=== PATIENT | female | born 1985 | race Caucasian/White ===

== ENCOUNTER 2018-11-05 05:25 | Inpatient (IN) | payer OTHER ==
[2018-11-05] MEDS ORDERED: BUTORPHANOL TARTRATE 1 MG/ML VIAL IVPB ONE (06:00)
[2018-11-05] MEDS ORDERED: ELECTROLYTE-148 SOLN 1,000 ML IV SCH (06:00)
--- NOTE | 2018-11-05 06:07 | HP ---
Past Medical History - Admission Chief Complaint: Uterine Contractions History of Present Illness: 33yo @ 40.2wks by LMP/sono with 11/03/18 XIN. here with uterine contractions. Reports a small amount of LOF at 2:30 AM No VB. +FM Preg c/b Obesity, suspected macrosomia- 9.9lbs. 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 No: Ascites, Cancer, Constipation, Crohn's Disease, Diverticulitis, Diverticulosis, Esophageal Varices, Gastritis, GERD, GI Bleed, Hemorrhoids, Hiatal Hernia, Inflamatory Bowel Disease, Pancreatitis, Peptic Ulcer Disease, Ulcerative Colitis, Other Hepatobiliary: No: Cirrhosis, Cholelithiasis, Cholecystitis, Choledocholithiasis , Hepatitis A, Hepatitis B, Hepatitis C, Other Renal/: No: Renal Failure, Renal Inusuff, BPH, Cancer, Hematuria, Hemodialysis , Neurogenic Bladder, Renal Calculi, UTI, Other ...: 2 ...Para: 1 ...Term: 1 ...: 0 ...Spon : 0 ...Induced : 0 ...Multiple Gestation: 0 ... Weeks Gestation by Dates: 40.2 ...EDC by Dates: 11/03/18 Psych: Yes: Anxiety, Depression - Past Surgical History Past Surgical History: Yes: None Hx Myomectomy: No Hx Transabdominal Cerclage: No - Smoking History Smoking history: Never smoked Have you smoked in the past 12 months: No Aproximately how many cigarettes per day: 0 - Alcohol/Substance Use Hx Alcohol Use: No History of Substance Use: reports: None - Social History ADL: Independent Home Medications - Allergies Allergies/Adverse Reactions: Allergies Allergy/AdvReac Type Severity Reaction Status Date / Time No Known Allergies Allergy Verified 10/27/18 11:36 - Home Medications Home Medications: Ambulatory Orders Pnv No.95/Ferrous Fum/Folic AC [ Formula] 1 each PO DAILY 10/27/18 Amoxicillin 500mg Capsule - 11/05/18 Review of Systems - Review of Systems Constitutional: reports: No Symptoms. denies: Chills, Diaphoresis, Fever, Lethargy, Loss of Appetite, Malaise, Night Sweats, Unintentional Wgt. Loss, Weakness, Other Eyes: denies: No Symptoms, Blind Spots, Blurred Vision, Double Vision, Eye Pain , Floaters, Photophobia, Recent Change in Vision, Other Cardiovascular: denies: No Symptoms, Chest Pain, Edema, Palpitations, Shortness of Breath, Other Respiratory: denies: No Symptoms, Cough, Exercise Intolerance, Hemoptysis, Orthopnea, PND, Snoring, SOB, SOB on Exertion, Wheezing, Other Physical Exam - Maternity Constitutional: Yes: Well Nourished, No Distress, Calm Eyes: Yes: WNL, Conjunctiva Clear, EOM Intact HENT: Yes: WNL, Atraumatic, Normocephalic - Abdominal Exam/OB Number of Fetuses: Single Presentation: Vertex Contractions: Yes Regularity: Regular Intensity: Moderate Monitor Mode: External Category: I Accelerations: Non-Uniform Decelerations: Prolonged - Vaginal Exam/OB Vaginal Bleediing: No Speculum Exam: No Dilatation (cm): 3-4 Effacement (%): 70 Amniotic Membrane Status: Intact Presentation: Vertex/Position Station: -3 Problem List - Problems (1) Uterine contractions Code(s): EVT6504 - Assessment/Plan 33yo @40.2wks here in labor, SROM Admit to L&D IVFs Stadol/Epidural CEFM/toco, Cat 1 tracing Anticipate SAIRA Alves MD
[2018-11-05 06:09] VITALS: BMI 35.7
[2018-11-05 06:13] LABS: BASO % 0.3 % (0-2.0); EOS % 0.4 % (0-4.5); HEMATOCRIT 36.3 % (32.4-45.2); HEMOGLOBIN 12.6 GM/dL (10.7-15.3); LYMPH % 16.4 % (8-40); MCH 31.3 pg (25.7-33.7); MCHC 34.7 g/dl (32.0-36.0); MEAN CELL VOLUME 90.2 fl (80-96); MEAN PLT VOLUME 10.5 fl (7.5-11.1); MONO % 6.9 % (3.8-10.2); PLATELET COUNT 161 K/MM3 (134-434); RBC 4.03 M/mm3 (3.60-5.2); RDW 14.5 % (11.6-15.6); WHITE BLOOD COUNT 9.3 K/mm3 (4.0-10.0)
[2018-11-05 06:24] LABS: INR 0.95 (0.83-1.09); PROTHROMBIN TIME (PATIENT) 11.2 SEC (9.7-13.0)
[2018-11-05 06:27] LABS: ACTIVATED PTT 27.7 SECONDS (25.2-36.5)
[2018-11-05 06:38] LABS: ANION GAP 11 MMOL/L (8-16); BLOOD UREA NITROGEN 11 mg/dL (7-18); CALCIUM 8.1 mg/dL (8.5-10.1); CHLORIDE 107 mmol/L (98-107); CO2 20 mmol/L (21-32); CREATININE 0.6 mg/dL (0.55-1.3); GLUCOSE,RANDOM 97 mg/dL (74-106); POTASSIUM 3.8 mmol/L (3.5-5.1); SODIUM 138 mmol/L (136-145)
[2018-11-05] MEDS ORDERED: FENTANYL/BUPIVACAINE/NS/PF - PCEA - 50 ML DISP.SYRIN EP ONE (07:05)
[2018-11-05] MEDS ORDERED: BUPIVACAINE HCL/PF 0.25% (2.5MG/ML) 10 ML VIAL ONE (07:12)
[2018-11-05] MEDS ORDERED: NALOXONE HCL 0.4 MG/ML VIAL IVPUSH PRN (07:34)
[2018-11-05] MEDS ORDERED: FENTANYL/BUPIVACAINE/NS/PF - PCEA - 50 ML DISP.SYRIN EP SCH (07:45)
--- NOTE | 2018-11-05 08:34 | PN ---
Progress Note, Labor Vaginal Exam #1 Labor Exam Date: 11/05/18 Labor Exam Time: 08:10 Heart Rate (range): Cat I Dilatation: 9 Effacement (%): 100 Amniotic Membrane Status: Ruptured Presentation: Vertex/Position Station: 0 Remarks: Resting comfortably with epidural; no rectal pressure Re-examine in one hour Anticipate SAIRA Alves MD
[2018-11-05] MEDS ORDERED: OXYTOCIN 20 UNITS in 0.9% NS 20 UNIT/1,000 ML INFUS.BAG IV ONE ×2 (08:54→13:31)
--- NOTE | 2018-11-05 09:40 | PN ---
Progress Note (short form) - Note Progress Note: 33 yrs admitted in labor by Dr Alves SROM -2.30 AM Onset LP 3.30 AM Epidural analgesia 7.25 AM - 9.00 AM Ant lip , vx +1 station FHR 120-130 cat-1 UC 2-3 min Selected Entries 11/05/18 11/05/18 09:00 09:15 Pulse Rate 88 88 Blood Pressure 123/77 125/69 Note : Last sono 10/27/18 sliup ,39 wks vx, efw 9'9" ( 97 %tile) Rt Ovarian cystic mass 9.3x9.10x 8.60 simple cyst , seen since 16 weeks sonogram . 1 hr GTT 119 Laboratory Tests 11/05/18 11/05/18 11/05/18 06:00 06:00 06:00 WBC 9.3 RBC 4.03 Hgb 12.6 Hct 36.3 Plt Count 161 Neutrophils % 76.0 Lymphocytes % 16.4 D Monocytes % 6.9 D PT with INR 11.20 INR 0.95 PTT (Actin FS) 27.7 Sodium 138 Potassium 3.8 Chloride 107 Carbon Dioxide 20 L BUN 11 Creatinine 0.6 Random Glucose 97 Calcium 8.1 L RPR Titer 11/05/18 06:00 WBC RBC Hgb 9.45 AM Hct Plt Count Neutrophils % Lymphocytes % Monocytes % PT with INR INR PTT (Actin FS) Sodium Potassium Chloride Carbon Dioxide BUN Creatinine Random Glucose Calcium RPR Titer Nonreactive 9.45 AM fully dilated,Vx +2/ fhr 130-140, pt pushing Problem List - Problems (1) Post term over 40 weeks Code(s): O48.0 - POST-TERM (2) Labor established Code(s): XLW0074 - (3) Right ovarian cyst Code(s): N83.201 - UNSPECIFIED OVARIAN CYST, RIGHT SIDE
[2018-11-05] MEDS ORDERED: LIDOCAINE HCL 1% PRESERVATIVE FREE - 30ML VIAL ONE (10:00)
[2018-11-05 10:53] LABS: ARTERIAL BLOOD GAS BASE EXCESS -1.8 meq/l (-2-2); ARTERIAL BLOOD GAS PCO2 49.3 mmHg (35-45); ARTERIAL BLOOD GAS pH 7.32 (7.35-7.45)
[2018-11-05] MEDS ORDERED: WITCH HAZEL 50% (TUCKS) 40 PAD/JAR PAD TP PRN (10:57)
[2018-11-05] MEDS ORDERED: BENZOCAINE 28 GM HEMORRHOIDAL OINTMENT TP PRN (10:57)
[2018-11-05] MEDS ORDERED: BISACODYL 10 MG SUPP.RECT RC PRN (10:57)
[2018-11-05] MEDS ORDERED: IBUPROFEN 600 MG TABLET (FP) PO PRN (10:57)
[2018-11-05] MEDS ORDERED: METHYLERGONOVINE MALEATE 0.2 MG/1 ML AMP IM PRN (10:57)
[2018-11-05] MEDS ORDERED: BENZOCAINE 20% 57 GM BOTTLE TP PRN (10:57)
[2018-11-05] MEDS ORDERED: OXYTOCIN 20 UNITS in 0.9% NS 20 UNIT/1,000 ML INFUS.BAG IV SCH (11:00)
[2018-11-05] MEDS: ACETAMINOPHEN 325 MG TABLET (FP) PO PRN ×2 (11:10→20:19)
[2018-11-05] MEDS: oxyCODONE HCL 5 MG TABLET PO PRN (11:10)
--- NOTE | 2018-11-05 11:24 | PN ---
Delivery - Delivery Vaginal Delivery: No Problems, Spontaneous (baby delievered in vx , Berna position , shoulders delievered without problem . immediate oral & nasal suction was done .placenta & membranes delievered completely with membranes . median episiotomy was given which was sutured in layers with chromic catgut #2/0 . bladder was catherized & emptied 25 ml urine. [place] exam mucosa & sphincter intact. sponge count correct .) Type of Anesthesia: Local, Epidural Episiotomy/Laceration: Midline EBL (cc): 300 Delivery, Single - Stages of Labor Date 1st Stage Initiatied: 11/05/18 Time 1st Stage Initiated: 03:30 Date 2nd Stage Initiated: 11/05/18 Time 2nd Stage Initiated: 09:45 Date of Delivery: 11/05/18 Time of Delivery: 10:14 Time Placenta Delivered: 10:25 Placenta: Yes: Spontaneous, Uterine Exploration - Condition of Funeral Pre Arrangement Specialist/Skidway Worker Present: Yes Name: DeeLupisana Infant Gender: Male Position: Right, OA Total Hours ROM (Hrs/Mins): [id number] - 1 Minute Total Score: 9 5 Minutes Total Score: 9 - Feeding Plan Initial Plan: Elected not to breastfeed exclusively throughout hospitalization Remarks - Remarks Remarks: 33 yrs , 40.2 weeks with SROM , admitted in labor Gbs neg PNC at [address] [place] [address] . Rt adnexal ( ovarian cyst) palpable after delivery of placenta . approx 8x10 cm in size , , soft cystic . Intrapartum course uneventful
[2018-11-05 11:26] LABS: VENOUS PC02 39.3 mmHg (38-52); VENOUS PH 7.37 (7.32-7.42); VENOUS PO2 27.4 mmHg (28-48)
[2018-11-05 11:28] LABS: ARTERIAL BLD GAS O2 SATURATION 34.1 % (90-98.9); ARTERIAL BLOOD GAS PO2 19.8 mmHg (80-100)
[2018-11-05] MEDS: FERROUS SO4 325 MG TABLET (FP) PO SCH (17:20)
[2018-11-06] MEDS: ACETAMINOPHEN 325 MG TABLET (FP) PO PRN ×2 (07:02→22:25)
[2018-11-06] MEDS: FERROUS SO4 325 MG TABLET (FP) PO SCH ×2 (07:02→17:30)
[2018-11-06] MEDS: oxyCODONE HCL 5 MG TABLET PO PRN (07:03)
--- NOTE | 2018-11-06 07:13 | PN ---
Progress Note (short form) - Note Progress Note: ppd 1 , doing well, no c/o CBC, BMP 11/05/18 06:00 11/05/18 06:00 Last Vital Signs Temp Pulse Resp BP Pulse Ox 97.9 F 83 18 106/44 L 100 11/06/18 05:54 11/06/18 05:54 11/06/18 05:54 11/06/18 05:54 11/05/18 12:00 abdomen soft, uterus firm, non tender lochia mild no calf tenderness plan ambulate, cbc d/c home in am
[2018-11-06 08:13] LABS: BASO % 0.2 % (0-2.0); EOS % 0.3 % (0-4.5); HEMATOCRIT 32.7 % (32.4-45.2); HEMOGLOBIN 11.2 GM/dL (10.7-15.3); LYMPH % 13.3 % (8-40); MCH 31.6 pg (25.7-33.7); MCHC 34.4 g/dl (32.0-36.0); MEAN CELL VOLUME 91.9 fl (80-96); MEAN PLT VOLUME 10.5 fl (7.5-11.1); MONO % 3.4 % (3.8-10.2); NEUT % 82.8 % (42.8-82.8); PLATELET COUNT 162 K/MM3 (134-434); RBC 3.55 M/mm3 (3.60-5.2); RDW 14.5 % (11.6-15.6); WHITE BLOOD COUNT 12.8 K/mm3 (4.0-10.0)
[2018-11-06] MEDS: PRENATAL VITAMINS W/ FOLIC ACID TABLET (FP) PO SCH (09:58)
[2018-11-06] MEDS ORDERED: DIPHTH,PERTUSS(ACELL),TET 0.5 ML DISP.SYRIN IM ONE (10:00)
[2018-11-06] MEDS ORDERED: SENNOSIDES/DOCUSATE COMBO (SENNA PLUS) TABLET (UD) PO PRN (22:00)
[2018-11-06 22:37] VITALS: TEMP 98.6
[2018-11-07] MEDS: oxyCODONE HCL 5 MG TABLET PO PRN ×2 (01:48→08:29)
[2018-11-07] MEDS: FERROUS SO4 325 MG TABLET (FP) PO SCH (08:29)
[2018-11-07] MEDS: ACETAMINOPHEN 325 MG TABLET (FP) PO PRN (08:30)
--- NOTE | 2018-11-07 08:54 | DS ---
Physical Exam-OPERATIONS TECHNICIAN Vital Signs: Vital Signs Temperature 98.6 F 11/06/18 22:00 Pulse Rate 88 11/06/18 22:00 Respiratory Rate 18 11/06/18 22:00 Blood Pressure 110/67 11/06/18 22:00 O2 Sat by Pulse Oximetry (%) 100 11/05/18 12:00 Constitutional: Yes: Well Nourished Eyes: Yes: WNL HENT: Yes: WNL Neck: Yes: WNL Cardiovascular: Yes: WNL Respiratory: Yes: WNL Gastrointestinal: Yes: WNL, Other (bm not done yet) ...Rectal Exam: Yes: WNL ....Post : Yes: Uterus firm, Uterus non-tender, Moderate lochia rubra ( perineum intact , episotomy healing well) Breast(s): Yes: WNL (BF) Musculoskeletal: Yes: WNL Extremities: Yes: WNL. No: Calf Tenderness Edema: Yes Edema: LLE: 1+, RLE: 1+ Integumentary: Yes: WNL, Tattoos Neurological: Yes: WNL, Alert, Oriented ...Motor Strength: WNL Psychiatric: Yes: WNL, Alert, Oriented Labs: CBC, BMP 11/06/18 07:00 11/05/18 06:00 Delivery - Delivery Vaginal Delivery: No Problems, Spontaneous (baby delievered in vx , Berna position , shoulders delievered without problem . immediate oral & nasal suction was done .placenta & membranes delievered completely with membranes . median episiotomy was given which was sutured in layers with chromic catgut #2/0 . bladder was catherized & emptied 25 ml urine. [place] exam mucosa & sphincter intact. sponge count correct .) Type of Anesthesia: Local, Epidural Episiotomy/Laceration: Midline EBL (cc): 300 Delivery, Single - Stages of Labor Date 1st Stage Initiatied: 11/05/18 Time 1st Stage Initiated: 03:30 Date 2nd Stage Initiated: 11/05/18 Time 2nd Stage Initiated: 09:45 Date of Delivery: 11/05/18 Time of Delivery: 10:14 Time Placenta Delivered: 10:25 Placenta: Yes: Spontaneous, Uterine Exploration - Condition of Mental Retardation Nurse/Sinter Press Operator Present: Yes Name: Mandru,Cosmina Gender: Male Weight: 10 lb 13 oz Position: Right, OA Total Hours ROM (Hrs/Mins): [id number] - 1 Minute Total Score: 9 5 Minutes Total Score: 9 - Feeding Plan Initial Plan: Elected not to breastfeed exclusively throughout hospitalization Remarks - Remarks Remarks: 33 yrs , 40.2 weeks with SROM , admitted in labor Gbs neg PNC at [address] [place] [address] . Rt adnexal ( ovarian cyst) palpable after delivery of placenta . approx 8x10 cm in size , , soft cystic . Intrapartum course uneventful . post course uneventful. discharge 11/07/18 Discharge Summary Reason For Visit: ADMIT Current Active Problems Labor established (Acute) Normal spontaneous vaginal delivery (Acute) Post term over 40 weeks (Acute) Right ovarian cyst (Acute) Uterine contractions (Acute) Condition: Stable - Instructions Diet, Activity, Other Instructions: Post Instructions DIET: Continue good diet high in protein, calcium, and iron rich foods. Drink at least eight (8) glasses of water daily in addition to other fluids. ___ Regular diet MEDICATIONS: Continue vitamins and iron as previously directed. Motrin and Tylenol may be taken for minor discomfort. ACTIVITY: Mild to moderate exercise may be started in two (2) weeks. Take frequent rest periods. Resume normal activity after six (6) week check up. WOUND CARE OF OPERATIVE SITE: Continue use of perineal bottle until vaginal discharge stops. Keep area clean. Shower daily. Keep abdominal wound dry. Report any drainage or redness to physician. Tub baths, tampons and douches are not permitted for [address] Breast feeding & or Bottle feeding BREAST CARE: (For those that are not breast feeding): If engorgement occurs: Wear tight fitting bra. Take Tylenol or Motrin for pain. Apply cold packs (ice in bags to each breast ) FAMILY PLANNING: There are many control alternatives to pursue and they should be discussed at your first office visit. You may resume sexual activity after your six (6) week check up. (Remember, breast feeding is not a contraceptive) NEXT PHYSICIAN APPOINTMENT: Be certain to call for a six (6) week appointment, unless otherwise directed. Call Clinic or got to Emergency Dept if you have any of the following: Heavy vaginal bleeding Painful urination Leg pain Unusual odor noted to vaginal bleeding High fever Red streaking noted on breast Referrals: Azra Aguayo MD [Staff Physician] - Disposition: HOME - Home Medications Comprehensive Discharge Medication List: Ambulatory Orders Pnv No.95/Ferrous Fum/Folic AC [ Formula Tablet] 1 each PO DAILY Acetaminophen [Tylenol .Regular Strength -] 650 mg PO Q3H PRN tablet 11/06/18 Benzocaine [Americaine 20% [place] -] 1 spray TP PRN PRN bottle 11/06/18 Ferrous Sulfate [Feosol] 325 mg PO BIDWM tab 11/06/18 Ibuprofen [Motrin -] 200 mg PO Q4H PRN tablet 11/06/18 Vitamins (Sjr) - 1 tab PO DAILY #30 tablet 11/06/18 Witch Abigail 50% (Tucks) [Tucks Pads -] 1 pad TP PRN PRN pad 11/06/18 Sennosides/Docusate Sodium [Pericolace -] 2 each PO HS #30 tablet 11/07/18
[2018-11-07] MEDS: PRENATAL VITAMINS W/ FOLIC ACID TABLET (FP) PO SCH (10:20)
[2018-11-07 11:57] VITALS: BP 122/80; PULSE 91
== END 2018-11-07 11:25 | disposition home or self-care (01) | DRG 560 ==
LOC: JDEL 05:25 → JLDR 05:45 → J3W 13:02
PROVIDERS: ADMIT Obstetrics & Gynecology; ATTEND Obstetrics & Gynecology
PROC: 10E0XZZ Delivery of Products of Conception, External Approach (ICD-10-PCS; principal; 2018-11-05)
PROC: 0W8NXZZ Division of Female Perineum, External Approach (ICD-10-PCS; 2018-11-05)
DX: O48.0 Post-term pregnancy (principal); Z3A.40 40 weeks gestation of pregnancy; O36.63X0 Maternal care for excessive fetal growth, third trimester, not applicable or unspecified; O99.214 Obesity complicating childbirth; E66.9 Obesity, unspecified; Z68.35 Body mass index [BMI] 35.0-35.9, adult; O34.83 Maternal care for other abnormalities of pelvic organs, third trimester; N83.201 Unspecified ovarian cyst, right side; Z37.0 Single live birth
CPT/HCPCS: 36415; 36600; 59409; 80048; 82803; 85025; 85610; 85730; 86593; 86850; 86900; 86901; 90715

== ENCOUNTER 2018-11-16 09:33 | Emergency (ER) | payer OTHER ==
[2018-11-16 09:43] VITALS: BP 123/77; PULSE 89; TEMP 98.1; BMI 30.7
--- NOTE | 2018-11-16 10:07 | PDOC ---
History of Present Illness - General Chief Complaint: Vaginal Bleeding Stated Complaint: WOUND Time Seen by Provider: 11/16/18 10:02 History Source: Patient - History of Present Illness Initial Comments: 11/16/18 10:36 33 yr old woman A0 s/p normal vaginal delivery on 11/05/2018 requiring episotomy presents c/o vaginal bleeding and c/o of episotomy pain. vaginal bleeding had decr at time of hospital dc but then restarted at home requiring pads, appears to be like "period" blood without clots.she has pain at her stitches with coughing, urination, defecation and sneezing. feels like her stitches may be opening. has breast pain from baby not fully nursing. denies lightheadedness, palpitations, dizziness, weakness, fevers, headache. continued vitamins without stool softener. Past History - Travel Traveled outside of the country in the last 30 days: No Close contact w/someone who was outside of country & ill: No - Past Medical History Allergies/Adverse Reactions: Allergies Allergy/AdvReac Type Severity Reaction Status Date / Time No Known Allergies Allergy Verified 11/16/18 09:40 Home Medications: Ambulatory Orders Amox-Tr/K Cl [Augmentin - 875Mg Tablet] 1 tab PO BID #13 tablet 11/16/18 Methylergonovine Maleate [Methergine] 0.2 mg PO Q6H #3 tablet 11/16/18 Anemia: Yes Asthma: No Cancer: No Cardiac Disorders: No COPD: No Diabetes: No HTN: No Seizures: No Thyroid Disease: No - Immunization History Immunization Up to Date: Yes - Suicide/Smoking/Psychosocial Hx Smoking Status: No Smoking History: Never smoked Have you smoked in the past 12 months: No Number of Cigarettes Smoked Daily: 0 Information on smoking cessation initiated: No Hx Alcohol Use: No Drug/Substance Use Hx: No Substance Use Type: None Hx Substance Use Treatment: No Review of Systems - Review of Systems Constitutional: No: Chills, Fever, Loss of Appetite HEENTM: Yes: Nose Congestion. No: Nose Pain Respiratory: No: Cough, Shortness of Breath, Hemoptysis Cardiac (ROS): No: Chest Pain, Edema, Irregular Heart Rate, Lightheadedness, Palpitations, Syncope, Chest Tightness ABD/GI: Yes: Constipated. No: Abdominal Distended, Diarrhea, Difficulty Swallowing, Nausea, Rectal Bleeding, Vomiting, Abdominal cramping : Yes: Burning. No: Dysuria, Discharge, Flank Pain, Hematuria, Urgency Musculoskeletal: No: Back Pain, Joint Pain, Joint Swelling, Muscle Weakness, Neck Pain, Joint Stiffness Integumentary: No: Bruising, Erythema, Pallor, Pruritus, Rash Neurological: No: Headache, Paresthesia, Tingling, Tremors, Unsteady Gait Psychiatric: No: Depression Hematologic/Lymphatic: No: Easy Bleeding, Easy Bruising *Physical Exam - Vital Signs Last Vital Signs Temp Pulse Resp BP Pulse Ox 98.1 F 89 17 123/77 99 11/16/18 09:40 11/16/18 09:40 11/16/18 09:40 11/16/18 09:40 11/16/18 09:40 - Physical Exam General Appearance: Yes: Appropriately Dressed HEENT: positive: EOMI, CYNDEE, Normal Voice, Pharynx Normal. negative: Pale Conjunctivae, Pharyngeal Erythema, Tonsillar Exudate, Thrush Neck: positive: Trachea midline, Normal Thyroid, Supple. negative: Lymphadenopathy (R), Lymphadenopathy (L), Rigidity, Thyromegaly Respiratory/Chest: positive: Lungs Clear, Normal Breath Sounds, Other (left breast mildly larger and firmer than right breast, no erythema, skin intact b/l no nipple discharge) Cardiovascular: positive: Regular Rhythm, Regular Rate Vascular Pulses: Dorsalis-Pedis (R): 2+, Doralis-Pedis (L): 2+ Female Pelvic Exam: positive: normal external exam, discharge, vaginal bleeding , other (malodorous dark vaginal bleeding, episiotomy area tender with scant discharge) Gastrointestinal/Abdominal: positive: Normal Bowel Sounds, Flat, Soft. negative : Tenderness Musculoskeletal: negative: CVA Tenderness Extremity: positive: Normal Inspection, Normal Range of Motion. negative: Pedal Edema, Calf Tenderness, Erythema Integumentary: positive: Normal Color, Dry, Warm. negative: Ecchymosis, Bruising Neurologic: positive: maintenance person II-XII NML intact, Fully Oriented, Alert Moderate Sedation - Procedure Monitoring Vital Signs: Procedure Monitoring Vital Signs Temperature 98.1 F 11/16/18 09:40 Pulse Rate 89 11/16/18 09:40 Respiratory Rate 17 11/16/18 09:40 Blood Pressure 123/77 11/16/18 09:40 O2 Sat by Pulse Oximetry (%) 99 11/16/18 09:40 ED Treatment Course - LABORATORY CBC & Chemistry Diagram: 11/16/18 11:06 11/16/18 11:06 Medical Decision Making - Medical Decision Making 11/16/18 10:43 33 yr old woman with vaginal bleeding and episiotomy wound pain s/p recent vaginal delivery. 11/16/18 10:[address] Rose to review PE and discuss plan cbc, cmp and u/a to r/o infection may need further imaging to r/o abscess or collection 11/16/18 11:35 cbc without anemia or leucocytotis, awaiting call back from covering ob physician. pt requesting to leave. recommended to patient to stay for full evaluation. 11/16/18 11:[address] Aguirre, recommends methergen 0.2mg q 6hrs for 4 doses, will give one dose here and agrees with augmentin po bid for 7 days. reviewed plan with patient and , agrees with plan, has an appointment with her ob's clinic tomorrow. recommended that she pump and dump while on antibiotics. discharge instructions for indications to return explained to patient, states understanding. pt stable for outpatient follow-up *DC/Admit/Observation/Transfer Diagnosis at time of Disposition: Vaginal discharge - Discharge Dispostion Disposition: HOME Condition at time of disposition: Stable Decision to Admit order: No - Prescriptions Prescriptions: Amox-Tr/K Cl [Augmentin - 875Mg Tablet] 1 tab PO BID #13 tablet Methylergonovine Maleate [Methergine] 0.2 mg PO Q6H #3 tablet - Referrals Referrals: Ban Lyon MD [Primary Care Provider] - Azra Aguayo MD [Staff Physician] - - Patient Instructions Printed Discharge Instructions: DI for Episiotomy Additional Instructions: Please follow-up with Dr. Rose's office tomorrow for further evalution. You are being started on an antibiotic, Augmentin 875mg, take 1 tablet twice dialy for 7 days, you received the first dose in the hospital. You are being started on methergen 0.2mg, take this medication every 6 hours for 3 doses, you received one dose at 12pm in the hospital. Please do not breast feed or give your milk to your baby while on antibiotics, you should pump and dump your breast milk. If you develop trouble breathing, worsening abdominal pain, fevers, puss developing at your incision site, or any new symptoms please return to the hospital. - Post Discharge Activity
--- NOTE | 2018-11-16 11:07 | PDOC ---
Attending Attestation - HPI HPI: 11/16/18 11:22 The patient is a 33 year old female with a past medical history of A0 and a normal vaginal delivery on 11/05/18 with episiotomy here today for evaluation of vaginal bleeding. The patient reports that she had vaginal bleeding after her delivery but it stopped just prior to her discharge. She reports that her bleeding resumed after she got home and that she feels like her stitches are opening when she coughs or sneezes. Patient denies headache, lightheadedness. Denies fever, chills. Denies chest pain, shortness of breath. Denies nausea, vomiting, diarrhea, abdominal pain. Allergies: NKA PCP: Ban Lyon - Medical Decision Making 11/16/18 11:22 Documentation prepared by NOEMI Sanchez, acting as medical lab director for Gallo Ayala MD. <Сергей Younger - Last Filed: 11/16/18 11:22> - Resident Resident Name: René Noel - ED Attending Attestation I have performed the following: I have examined & evaluated the patient, The case was reviewed & discussed with the resident, I agree w/resident's findings & plan, Exceptions are as noted - Physicial Exam PE: 11/16/18 11:17 GENERAL: Awake, alert, and fully oriented, in no acute distress HEAD: No signs of trauma EYES: PERRLA, EOMI, sclera anicteric, conjunctiva clear ENT: Auricles normal inspection, hearing grossly normal, nares patent, NECK: Normal ROM, supple ABDOMEN: Soft, nontender, No guarding, no rebound. No masses ULTRASONOGRAPHER: External exam with no current vaginal bleeding. Episitomy wound not dehisced but with foul odor and small amounts of erythema and small drainage . No obvious purulent drainage. EXTREMITIES: Normal range of motion, no edema. No clubbing or cyanosis. No cords, erythema, or tenderness NEUROLOGICAL: Cranial nerves II through XII grossly intact. Normal speech SKIN: Warm, Dry, normal turgor, no rashes or lesions noted. - Medical Decision Making 11/16/18 11:18 A portion of this note was documented by scribe services under my direction. I have reviewed the details of the note, within reason, and agree with the documentation with the following case summary and management plan written by me. Patient treated in the ED. Nursing notes are reviewed and incorporated into the medical decision-making. Vital signs reviewed. Peripheral IV access obtained by the nurse, laboratory studies are drawn and sent, reviewed and interpreted by myself. Vital Signs Temp Pulse Resp BP Pulse Ox 98.1 F 89 17 123/77 99 11/16/18 09:40 11/16/18 09:40 11/16/18 09:40 11/16/18 09:40 11/16/18 09:40 33-year-old female with no medical problems presents with vaginal bleeding and wound check. The patient had delivered her child he had a vaginal delivery on November 05. The child was over 10 pounds and require an episiotomy. Episiotomy was repaired and the patient left without vaginal bleeding. She reported bleeding stopped prior to discharge. She is discharged on give her but July 08, the patient started developing vaginal bleeding. She reports approximately 4-5 pads per day since then. She denies lightheadedness, shortness of breath, chest pain, lightheadedness. We'll draw labs but I suspect the patient may need to go home on antibiotics. I suspect there may be a mild developing infection at the episitomy site. Will consult pt's EMERGENCY MEDICAL TECHNICIAN/DRIVER and dispo accordingly. 11/16/18 11:50 CBC, BMP 11/16/18 11:06 11/16/18 11:06 CMP Sodium 136 mmol/L (136-145) 11/16/18 11:06 Potassium 4.3 mmol/L (3.5-5.1) 11/16/18 11:06 Chloride 104 mmol/L (98-107) 11/16/18 11:06 Carbon Dioxide 26 mmol/L (21-32) 11/16/18 11:06 Anion Gap 6 MMOL/L (8-16) L 11/16/18 11:06 BUN 17 mg/dL (7-18) 11/16/18 11:06 Creatinine 0.7 mg/dL (0.55-1.3) 11/16/18 11:06 Creat Clearance w eGFR > 60 (>60) 11/16/18 11:06 Random Glucose 79 mg/dL (74-106) 11/16/18 11:06 Calcium 8.5 mg/dL (8.5-10.1) 11/16/18 11:06 Total Bilirubin 0.2 mg/dL (0.2-1) 11/16/18 11:06 AST 16 U/L (15-37) 11/16/18 11:06 ALT 27 U/L (13-61) 11/16/18 11:06 Alkaline Phosphatase 138 U/L (45-117) H 11/16/18 11:06 Total Protein 7.1 g/dl (6.4-8.2) 11/16/18 11:06 Albumin 3.1 g/dl (3.4-5.0) L 11/16/18 11:[address] Aguirre. She agrees with my plan for PO augmentin. For the bleeding, she advises 0.2 mg PO methergine q6h for 4 doses in total and follow up in clinic. Labs reassuring. Pt advised not to breastfeed on these medications. She has an appointment with OB tomorrow. <Gallo Ayala - Last Filed: 11/16/18 11:51>
[2018-11-16 11:23] LABS: BASO % 0.9 % (0-2.0); EOS % 2.5 % (0-4.5); HEMATOCRIT 39.3 % (32.4-45.2); HEMOGLOBIN 13.5 GM/dL (10.7-15.3); LYMPH % 21.3 % (8-40); MCH 31.3 pg (25.7-33.7); MCHC 34.2 g/dl (32.0-36.0); MEAN CELL VOLUME 91.4 fl (80-96); MONO % 3.9 % (3.8-10.2); NEUT % 71.4 % (42.8-82.8); PLATELET COUNT 281 K/MM3 (134-434); RDW 14.1 % (11.6-15.6); WHITE BLOOD COUNT 8.9 K/mm3 (4.0-10.0)
[2018-11-16 11:33] LABS: URINE APPEARANCE SLCLOUDY; URINE BILIRUBIN NEGATIVE (<2.0 mg/dL); URINE COLOR LTYELLOW; URINE GLUCOSE (UA) NEGATIVE (NEGATIVE); URINE KETONE NEGATIVE (NEGATIVE); URINE LEUK ESTERASE 3+ (NEGATIVE); URINE NITRITE NEGATIVE (NEGATIVE); URINE PROTEIN NEGATIVE (NEGATIVE); URINE UROBILINOGEN NEGATIVE mg/dL (0.2-1.0)
[2018-11-16 11:43] LABS: ALBUMIN 3.1 g/dl (3.4-5.0); ALK PHOS 138 U/L (45-117); ANION GAP 6 MMOL/L (8-16); BILIRUBIN,TOTAL 0.2 mg/dL (0.2-1); BLOOD UREA NITROGEN 17 mg/dL (7-18); CALCIUM 8.5 mg/dL (8.5-10.1); CHLORIDE 104 mmol/L (98-107); CO2 26 mmol/L (21-32); CREATININE 0.7 mg/dL (0.55-1.3); GLUCOSE,RANDOM 79 mg/dL (74-106); POTASSIUM 4.3 mmol/L (3.5-5.1); SGOT/AST 16 U/L (15-37); SGPT/ALT 27 U/L (13-61); SODIUM 136 mmol/L (136-145); TOT PROT 7.1 g/dl (6.4-8.2)
[2018-11-16 11:47] LABS: EPI CELLS RARE /HPF (FEW); URINE MUCUS RARE
[2018-11-16] MEDS ORDERED: METHYLERGONOVINE MALEATE 0.2 MG TABLET (FP) PO ONE (11:49)
[2018-11-16] MEDS ORDERED: AMOX TR/POT CLAV 875MG/125MG TABLETS (FP) PO ONE (11:49)
[2018-11-16] MEDS ORDERED: AMOX TR/POT CLAV 875MG/125MG TABLETS (FP) ONE (11:53)
[2018-11-16] MEDS ORDERED: AMOXICILLIN ORAL SUSPENSION - 250 MG/5 ML ONE (11:53)
== END 2018-11-16 12:12 | disposition home or self-care (01) ==
LOC: JER 09:33
DX: O90.89 Other complications of the puerperium, not elsewhere classified (principal); N89.8 Other specified noninflammatory disorders of vagina; O72.2 Delayed and secondary postpartum hemorrhage
CPT/HCPCS: 36415; 80053; 81003; 81015; 85025; 99282-25